=== PATIENT | male | born 1990 | race Caucasian/White ===

== ENCOUNTER 2020-01-14 09:04 | Outpatient (NON) | payer OTHER, SELFPAY ==
[2020-01-14 23:31] LABS: SARS-CoV-2 RNA PCR Negative
== END 2020-01-14 09:05 ==
PROVIDERS: PCP Family Medicine; Visit Provider Family Medicine
DX: R06.02 Shortness of breath (principal); Z20.828 Contact with and (suspected) exposure to other viral communicable diseases
CPT/HCPCS: 87635; C9803; U0003